=== PATIENT | male | born 1990 | race American Indian/Alaskan Native ===

== ENCOUNTER 2017-02-10 20:12 | Emergency (ER) | payer SELFPAY ==
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
--- NOTE | 2017-02-10 23:19 | Emergency Department Report ---
ED General Adult HPI - General Chief complaint: Head Injury Stated complaint: HEAD INJURY Time Seen by Provider: 02/10/17 23:19 Source: patient Mode of arrival: Ambulatory Limitations: No Limitations - Related Data Previous Rx's Medication Instructions Recorded Last Taken Type Doxycycline [Vibramycin CAP] 100 mg PO BID #14 capsule 09/19/14 Unknown Rx Allergies Allergy/AdvReac Type Severity Reaction Status Date / Time No Known Allergies Allergy Verified 02/10/17 21:23 ED Review of Systems ROS: Stated complaint: HEAD INJURY Other details as noted in HPI ED Past Medical Hx - Past Medical History Previous Medical History?: No - Surgical History Past Surgical History?: No - Social History Smoking Status: Never Smoker Substance Use Type: None - Medications Home Medications: Home Medications Medication Instructions Recorded Confirmed Last Taken Type Doxycycline [Vibramycin CAP] 100 mg PO BID #14 capsule 09/19/14 Unknown Rx ED Physical Exam - General Limitations: No Limitations ED Course Vital Signs 02/10/17 21:24 Temperature 97.3 F L Pulse Rate 80 Respiratory 16 Rate Blood Pressure 118/79 O2 Sat by Pulse 99 Oximetry Critical care attestation.: If time is entered above; I have spent that time in minutes in the direct care of this critically ill patient, excluding procedure time. ED Disposition Condition: Stable Referrals: PRIMARY CARE, [Primary Care Provider] - 3-5 Days
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
[2017-02-10] MEDS ORDERED: FUL-GLO OP ONE (23:29)
[2017-02-10] MEDS ORDERED: TYLENOL PO ONE (23:29)
[2017-02-10] MEDS ORDERED: BOOSTRIX IM ONE (23:29)
[2017-02-10] MEDS ORDERED: TETRACAINE 0.5% OS STA (23:29)
[2017-02-10] MEDS ORDERED: NACL 0.9% IR ONE (23:29)
[2017-02-10] MEDS ORDERED: MOTRIN PO ONE (23:29)
[2017-02-10] MEDS ORDERED: NACL 0.9% 0 ML IR ONE (23:37)
[2017-02-11 01:06] VITALS: BP 134/81
== END 2017-02-11 01:06 | disposition home or self-care (01) ==
LOC: ED 20:12
DX: S00.83XA Contusion of other part of head, initial encounter (principal); Y04.2XXA Assault by strike against or bumped into by another person, initial encounter; Y93.9 Activity, unspecified; Y99.9 Unspecified external cause status; Y92.89 Other specified places as the place of occurrence of the external cause
CPT/HCPCS: 70450; 90471; 90715